=== PATIENT | female | born 1985 | race Caucasian/White ===

== ENCOUNTER → 2019-05-02 17:43 | Outpatient (CLI) | payer OTHER, SELFPAY ==
--- NOTE | ~2019-05-02 | US_ITS ---
EXAMINATION: US OB transvaginal DATE: 05/02/2019 18:12 INDICATION: Establish dating of during first trimester TECHNIQUE: Real-time pelvic ultrasound utilizing both a transvaginal and transabdominal probe was pe rformed. The interpreting radiologist was not present for the study. COMPARISON: None. FINDINGS: The uterus measures 8.8 x 5.2 x 5.5 cm. There is an intrauterine gestational sac. A yolk sac and fet al pole are identified. The crown rump length measures 4 mm, which correlates with an estimated gesta tional age of 6 weeks and 1 days. heart motion is identified measuring 111 beats per minute (bp m) by M-mode Doppler. The right ovary is not visualized. The left ovary measures 2.6 x 2.7 x 2.7 cm and contains a 10 mm an echoic likely corpus luteum cyst. Vascular flow is seen in the left ovary on color Doppler. There is no free fluid in the pelvis. IMPRESSION: 1. Single living fetus with heart rate of 111 bpm. 2. Gestational age by ultrasound of 6 weeks 1 day(s) +/- 4 day(s) with ultrasound estimated date of delivery (JOÃO) of 12/25/2019. Reviewed, dictated and finalized at location A. T PACKER IMPRESSION: 1. Single living fetus with heart rate of 111 bpm. 2. Gestational age by ultrasound of 6 weeks 1 day(s) +/- 4 day(s) with ultraso und estimated date of delivery (JOÃO) of 12/25/2019.
== END ==
PROVIDERS: Visit Provider Obstetrics & Gynecology
DX: O26.21 Pregnancy care for patient with recurrent pregnancy loss, first trimester (principal); Z3A.01 Less than 8 weeks gestation of pregnancy
CPT/HCPCS: 76817

== ENCOUNTER 2019-07-25 07:56 | Outpatient (CLI) | payer OTHER, SELFPAY ==
--- NOTE | ~2019-07-25 | US_ITS ---
EXAMINATION: US OB /maternal detail DATE: 07/25/2019 09:05 INDICATION: survey TECHNIQUE: Multiple obstetric sonographic images performed. FINDINGS: No prior studies for comparison. There is a single living fetus in vertex presentation. The placenta is fundal without placenta previ a. Amniotic fluid volume is subjectively normal. cardiac activity and movement is noted with a heart rate of 157 beats per minute. The following anatomy was identified as normal: 4 chamber heart 3 vessel cord cord insertion kidneys urinary bladder stomach spine diaphragm ventricles cisterna magna cerebellum The following biometric data were obtained: BPD: 40mm corresponds to gestational age 18 weeks 1 days. Head circumference: 154 mm corresponds to gestational age 18 weeks 2 days. Abdominal circumference: 132 mm corresponds to gestational age 18 weeks 5 days. Femur length: 26 mm corresponds to gestational age 18 weeks 0 days. Head circumference to abdominal circumference ratio: 1.16 (normal range for expected gestational age is 1.08-1.27). Estimated weight: 235 grams +/- 35 grams using Hadlock method. IMPRESSION: 1: Single living intrauterine with an estimated gestational age of 18weeks 2days by current ultrasound measurements, with an EDC of 12/24/2019 in breech presentation. 2. Normal survey. Reviewed, dictated and finalized at location A. IMPRESSION: 1: Single living intrauterine with an estimated gestational age of 18 weeks 2days by current ultrasound measurements, with an EDC of 12/24/2019 in [place] ech presentation. 2. Normal survey.
== END 2019-07-25 07:57 | disposition home or self-care (01) ==
LOC: ANHIMG 07:59
PROVIDERS: PCP Family Medicine; Visit Provider Obstetrics & Gynecology
DX: Z34.92 Encounter for supervision of normal pregnancy, unspecified, second trimester (principal); Z3A.18 18 weeks gestation of pregnancy
CPT/HCPCS: 76805

== ENCOUNTER → 2019-10-16 11:32 | Outpatient (CLI) | payer OTHER, SELFPAY ==
--- NOTE | ~2019-10-16 | US_ITS ---
EXAMINATION: US OB follow up DATE: 10/16/2019 11:52 INDICATION: Size greater than dates during third trimester TECHNIQUE: Real-time ultrasound of the pelvis was performed. The interpreting radiologist was not pre sent for the study. COMPARISON: 07/25/2019 FINDINGS: There is a single living fetus in breech presentation. The placenta is anterior. card iac activity and movement are noted. heart rate is 150 beats per minute (bpm). The amniot ic fluid index is 20.2 cm which is normal. The following biometric data were obtained: Biparietal diameter (BPD): 7.9 cm; head circumference (HC): 29.7 cm; abdominal circumference (AC): 28 .9 cm; femur length (FL): 6.0 cm. These measurements are concordant. Estimated weight is 1982 g +/- 297 g, which correlates with the >97th percentile when 12/25/2019 is used as estimated date of delivery. As single measurements, these parameters are each equal to the following estimated gestational ages w ith ranges of +/- 2 standard deviations: BPD: 32 weeks 0 days ( 29 weeks 0 days - 35 weeks 1 days). HC: 32 weeks 6 days ( 29 weeks 6 days - 35 weeks 6 days). AC: 33 weeks 0 days ( 30 weeks 0 days - 35 weeks 6 days). FL: 31 weeks 4 days ( 28 weeks 4 days - 34 weeks 4 days). estimated gestational age based solely on measurements from this exam is 32 weeks 3 days +/- 2 weeks 2 days. IMPRESSION: 1. Single living fetus in breech presentation. 2. Estimated weight is 1982 g +/- 297 g, which correlates with the >97th percentile when 020 is used as estimated date of delivery. 3. Normal amniotic fluid index. Reviewed, dictated and finalized at location A. IMPRESSION: 1. Single living fetus in breech presentation. 2. Estimated weight is 1982 g +/- 297 g, which correlates with the >97th percentile when 12/25/2019 is used as estimated date of delivery. 3. Normal amniotic fluid index.
== END ==
PROVIDERS: Visit Provider Obstetrics & Gynecology Gynecology
DX: O36.63X0 Maternal care for excessive fetal growth, third trimester, not applicable or unspecified (principal); Z3A.32 32 weeks gestation of pregnancy
CPT/HCPCS: 76816

== ENCOUNTER 2019-11-17 12:34 | Outpatient (RCR) | payer OTHER, SELFPAY ==
[2019-11-17 13:45] VITALS: BP 136/76; PULSE 84
== END 2019-12-13 08:07 | disposition home or self-care (01) ==
LOC: ANHOBOP 12:34
PROVIDERS: PCP Family Medicine; Visit Provider Obstetrics & Gynecology
DX: P59.9 Neonatal jaundice, unspecified (principal)
CPT/HCPCS: 59025

== ENCOUNTER → 2019-11-27 12:07 | Outpatient (CLI) | payer OTHER, SELFPAY ==
--- NOTE | ~2019-11-27 | US_ITS ---
EXAMINATION: US OB follow up DATE: 11/27/2019 12:31 INDICATION: Size greater than dates during third trimester TECHNIQUE: Real-time ultrasound of the pelvis was performed. The interpreting radiologist was not pre sent for the study. COMPARISON: 10/03/2019 FINDINGS: There is a single living fetus in vertex presentation. The placenta is anterior. card iac activity and movement are noted. heart rate is 134 beats per minute (bpm). The amniot ic fluid index is 22.3 cm which is normal. The following biometric data were obtained: Biparietal diameter (BPD): 8.9 cm; head circumference (HC): 32.1 cm; abdominal circumference (AC): 33 .9 cm; femur length (FL): 6.9 cm. These measurements are concordant. Estimated weight is 3060 g +/- 459 g, which correlates with the 76th percentile when 12/25/2019 is used as estimated date of delivery. As single measurements, these parameters are each equal to the following estimated gestational ages w ith ranges of +/- 2 standard deviations: BPD: 36 weeks 1 days ( 33 weeks 0 days - 39 weeks 3 days). HC: 36 weeks 2 days ( 33 weeks 4 days - 38 weeks 6 days). AC: 37 weeks 6 days ( 34 weeks 6 days - 40 weeks 6 days). FL: 35 weeks 3 days ( 32 weeks 3 days - 38 weeks 3 days). estimated gestational age based solely on measurements from this exam is 36 weeks 3 days +/- 2 weeks 4 days. IMPRESSION: 1. Single living fetus in vertex presentation. 2. Normal amniotic fluid index. 3. Estimated weight is 3060 g +/- 459 g, which correlates with the 76th percentile when 12/25/19 20 is used as estimated date of delivery. Reviewed, dictated and finalized at location A. IMPRESSION: 1. Single living fetus in vertex presentation. 2. Normal amniotic fluid index. 3. Estimated weight is 3060 g +/- 459 g, which correlates with the 76th p ercentile when 12/25/2019 is used as estimated date of delivery.
== END ==
PROVIDERS: Visit Provider Obstetrics & Gynecology
DX: O36.63X0 Maternal care for excessive fetal growth, third trimester, not applicable or unspecified (principal); Z3A.36 36 weeks gestation of pregnancy
CPT/HCPCS: 76816

== ENCOUNTER 2019-11-29 16:28 | Outpatient (CLI) | payer OTHER, SELFPAY ==
[2019-11-29 17:34] LABS: Alanine Aminotransferase 12 U/L (4-35); Albumin Level 3.1 g/dL (3.5-5.1); Alkaline Phosphatase 94 U/L (38-126); Anion Gap 6 mmol/L (8-16); Aspartate Amino Transferase 18 U/L (14-36); Bilirubin,Total < 0.1 mg/dL (0.2-1.3); Blood Urea Nitrogen 9 mg/dL (7-17); Calcium 8.4 mg/dL (8.4-10.2); Carbon Dioxide 21 mmol/L (22-30); Chloride 106 mmol/L (98-107); Estimated Glomerular Filt Rate > 60; Glucose 127 mg/dL (65-105); Potassium 3.5 mmol/L (3.4-5.0); Sodium 133 mmol/L (137-145); Uric Acid 4.7 mg/dL (2.5-7.5)
== END 2019-11-29 16:29 | disposition home or self-care (01) ==
PROVIDERS: PCP Family Medicine; Visit Provider Obstetrics & Gynecology
DX: O13.9 Gestational [pregnancy-induced] hypertension without significant proteinuria, unspecified trimester (principal); Z3A.00 Weeks of gestation of pregnancy not specified
CPT/HCPCS: 36415; 80053; 84550

== ENCOUNTER 2019-12-01 08:41 | Outpatient (CLI) | payer OTHER, SELFPAY ==
[2019-12-01 09:07] LABS: Collection Time Urine 24 HOURS
[2019-12-01 09:15] LABS: Patient Weight 200 Lbs; Total Volume 24 Hour Urine 2500 ml
[2019-12-01 10:23] LABS: Creatinine Clearance Urine 186.3 ml/min (75-125)
== END 2019-12-01 08:42 | disposition home or self-care (01) ==
PROVIDERS: PCP Family Medicine; Visit Provider Obstetrics & Gynecology
DX: O24.419 Gestational diabetes mellitus in pregnancy, unspecified control (principal); Z3A.00 Weeks of gestation of pregnancy not specified
CPT/HCPCS: 82575

== ENCOUNTER 2019-12-08 09:18 | Outpatient (CLI) | payer OTHER, SELFPAY ==
[2019-12-08 10:03] LABS: Estimated Glomerular Filt Rate > 60
[2019-12-08 12:30] LABS: Collection Time Urine 24 HOURS
[2019-12-08 12:38] LABS: Creatinine Urine 65.8 mg/dL; Patient Weight 275 Lbs; Total Protein Urine Random 14 mg/dL
[2019-12-08 12:42] LABS: Creatinine Clearance Urine 157.6 ml/min (75-125); Total Protein Urine 24 Hr 322 MG/DAY (28-141); Total Volume 24 Hour Urine 2300 ml
== END 2019-12-08 09:19 | disposition home or self-care (01) ==
LOC: ANHLAB 09:20
PROVIDERS: Visit Provider Obstetrics & Gynecology
DX: O13.9 Gestational [pregnancy-induced] hypertension without significant proteinuria, unspecified trimester (principal); O12.00 Gestational edema, unspecified trimester
CPT/HCPCS: 36415; 81050; 82565; 82575; 84156

== ENCOUNTER 2019-12-11 06:48 | Inpatient (IN) | payer OTHER, SELFPAY ==
[2019-12-11] VITALS (103 sets, daily range): BP systolic 105–168; BP diastolic 58–106; PULSE 63–143; RESP 15–16; TEMP 36.8–37.5; O2SAT 96–100; BMI 43.1
[2019-12-11] MEDS: LACTATED RINGERS 1,000 ML 125 ML IV CONT ×2 (07:55→09:04)
[2019-12-11 07:56] LABS: Basophils Percent Auto 0.3 % (0.2-1.2); Eosinophils Absolute Auto 0.1 K/mm3 (0-0.3); Eosinophils Percent Auto 0.5 % (0-4.4); Hematocrit 30.8 % (37.0-47.0); Hemoglobin 10.4 g/dL (12.0-15.0); Immature Granulocyte Absolute 0.07 K/mm3 (0.00-0.031); Immature Granulocyte Percent A 0.6 % (0-0.5); Lymphocytes Absolute Auto 1.82 K/mm3 (0.9-3.2); Lymphocytes Percent Auto 15.6 % (18.3-44.2); Mean Corpuscular HGB Conc 33.8 g/dl (32-36); Mean Corpuscular Hemoglobin 30.1 pg (26-34); Mean Corpuscular Volume 89.3 fl (80-100); Mean Platelet Volume 10.4 fl (7.4-10.4); Monocytes Absolute Auto 0.5 K/mm3 (0.1-0.6); Monocytes Percent Auto 3.9 % (2.6-8.5); Neutrophils Absolute Auto 9.2 K/mm3 (1.3-6.7); Neutrophils Percent Auto 79.1 % (45.5-73.1); Platelet Count Result 264 k/mm3 (150-375); Red Blood Count 3.45 M/mm3 (4.2-5.4); Red Cell Distribution Width 14.1 % (11.5-14.5); White Blood Count 11.7 K/mm3 (4.5-10.0)
[2019-12-11] MEDS: OXYTOCIN 30 UNITS/NS 500 ML 30 UNITS/500 ML BAG IV CONT (07:56)
[2019-12-11] MEDS: CALCIUM CARBONATE (TUMS) 500 MG (200 MG ELEMENTAL) PO (08:02)
[2019-12-11 08:07] LABS: Alanine Aminotransferase 14 U/L (4-35); Albumin Level 3.3 g/dL (3.5-5.1); Alkaline Phosphatase 111 U/L (38-126); Anion Gap 9 mmol/L (8-16); Aspartate Amino Transferase 22 U/L (14-36); Bilirubin,Total 0.2 mg/dL (0.2-1.3); Blood Urea Nitrogen 11 mg/dL (7-17); Calcium 9.1 mg/dL (8.4-10.2); Carbon Dioxide 21 mmol/L (22-30); Chloride 103 mmol/L (98-107); Estimated Glomerular Filt Rate > 60; Glucose 134 mg/dL (65-105); Potassium 3.7 mmol/L (3.4-5.0); Sodium 133 mmol/L (137-145); Uric Acid 5.1 mg/dL (2.5-7.5)
--- NOTE | 2019-12-11 08:13 | WPDOBADMIT ---
Obstetrics - Admit Note Admission Note: record reviewed. No pertinent additions to the history and/or any subsequent changes in the physical findings that are not consistent with the expected course of the were found. Additions to the history and/or subsequent changes in the physical findings follow. None.Here per Dr. Hartmann for MIL for preeclampsia. Asked to AROM. Cervix 3-4/50/-2 AROM with clear fluid. BP elevated x 2 when getting IV. ok now
--- NOTE | 2019-12-11 09:01 | WPDANESEPPF ---
Anes - Initial Pre Proc Eval Procedure: labor epidural Date/Time: 12/11/19 09:01 Surgeon: Leobardo Hartmann MD Pre Op Diagnosis: labor pain Pre Op Diagnosis: IOL Patient Data Age: 34 Gender: F Height: 1.7 m Weight: 125 kg Last Vital Signs Temp 37.0 C 12/11/19 08:05 Pulse 100 12/11/19 08:59 BP 136/86 12/11/19 08:59 Pulse Ox 100 12/11/19 09:00 Allergies Allergy/AdvReac Type Severity Reaction Status Date / Time doxycycline Allergy Unknown rash, Verified 04/02/17 21:20 pruritis Home Medications Medication Instructions Recorded Confirmed Type fluoxetine 10 mg tablet 10 mg PO DAILY 02/09/19 12/02/19 History cholecalciferol (vitamin D3) 1,250 1,250 mcg PO WEEKLY 08/01/19 12/02/19 History mcg (50,000 unit) capsule vit 123-iron 28 mg-folic 1 cap PO DAILY 08/01/19 12/02/19 History acid 800 [id number] 235 mg capsule ferrous sulfate [Iron (ferrous 325 mg PO DAILY 12/02/19 12/02/19 History sulfate)] insulin NPH isoph U-100 human 10 unit SUBCUT HS 12/02/19 12/02/19 History [Humulin N NPH U-100 Insulin] Laboratory Tests 12/11/19 12/11/19 12/11/19 07:37 07:37 07:37 WBC 11.7 K/mm3 H K/mm3 (4.5-10.0) RBC 3.45 M/mm3 L M/mm3 (4.2-5.4) Hgb 10.4 g/dL L g/dL (12.0-15.0) Hct 30.8 % L % (37.0-47.0) MCV 89.3 fl fl (80-100) MCH 30.1 pg pg (26-34) MCHC 33.8 g/dl g/dl (32-36) RDW 14.1 % % (11.5-14.5) Plt Count 264 k/mm3 k/mm3 (150-375) MPV 10.4 fl fl (7.4-10.4) Immature Gran % (Auto) 0.6 % H % (0-0.5) Neut % (Auto) 79.1 % H % (45.5-73.1) Lymph % (Auto) 15.6 % L % (18.3-44.2) [place] % (Auto) 3.9 % % (2.6-8.5) Eos % (Auto) 0.5 % % (0-4.4) Baso % (Auto) 0.3 % % (0.2-1.2) Lymph # (Auto) 1.82 K/mm3 K/mm3 (0.9-3.2) [place] # (Auto) 0.5 K/mm3 K/mm3 (0.1-0.6) Eos # (Auto) 0.1 K/mm3 K/mm3 (0-0.3) Baso # (Auto) 0.0 K/mm3 K/mm3 (0.0-0.1) Abs Immat Gran (auto) 0.07 K/mm3 H K/mm3 (0.00-0.031) Absolute Neuts (auto) 9.2 K/mm3 H K/mm3 (1.3-6.7) Absolute Nucleated RBC 0.0 K/mm3 K/mm3 (0.0-0.012) Nucleated RBC % 0.0 % % (0.0-0.2) Sodium 133 mmol/L L mmol/L (137-145) Potassium 3.7 mmol/L mmol/L (3.4-5.0) Chloride 103 mmol/L mmol/L (98-107) Carbon Dioxide 21 mmol/L L mmol/L (22-30) Anion Gap 9 mmol/L mmol/L (8-16) BUN 11 mg/dL mg/dL (7-17) Creatinine 0.50 mg/dL L mg/dL (0.7-1.0) Estim Creat Clear Calc Not Reportable Estimated GFR > 60 (59 - ) Glucose 134 mg/dL H mg/dL (65-105) Uric Acid 5.1 mg/dL mg/dL (2.5-7.5) Calcium 9.1 mg/dL mg/dL (8.4-10.2) Total Bilirubin 0.2 mg/dL mg/dL (0.2-1.3) AST 22 U/L U/L (14-36) ALT 14 U/L U/L (4-35) Alkaline Phosphatase 111 U/L U/L (38-126) Total Protein 6.0 g/dL L g/dL (6.3-8.2) Albumin 3.3 g/dL L g/dL (3.5-5.1) RPR Pending Patient hx anesthesia problems: none Family hx anesthesia problems: none PMF Past Medical History Medical History (Updated 12/11/19 @ 09:04 by Cecil Teague, ) Anxiety with flying Gestational diabetes Missed 2018/ 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
[2019-12-11 10:39] LABS: Glucose Point of Care 74 (65-105)
--- NOTE | 2019-12-11 13:54 | P.PCNOB_ITS ---
OB - Delivery Note Procedure events: Gestational Diabetes and Pre-Eclampsia Intrapartal events: None Induction method: AROM and per pitocin protocol Delivery monitor: external FHT and external uterine Route of delivery: Laceration description: Perineal - 2nd Degree Delivery repair: vicryl Specimen: Yes Estimated blood loss (mL): 240 Anesthesia type: Epidural [place] Baby Date of : 12/11/19 Time of : 13:38 Weeks of gestation at delivery: 38 Weight (pounds): 8 Weight (ounces): 0 presentation: vertex position: Left Occiput Anterior Placenta delivery description: Spontaneous cord vessel description: 3 Vessels score one minute: 8 score five minutes: 9
[2019-12-11] MEDS: OXYTOCIN 30 UNITS/NS 500 ML 30 UNITS/500 ML BAG 125 UNITS IV CONT (14:18)
[2019-12-11] MEDS: WITCH HAZEL 40 PADS 1 PAD TOPICAL (16:12)
[2019-12-11] MEDS: IBUPROFEN 600 MG TABLET PO (16:12)
[2019-12-11] MEDS: BENZOCAINE 20% AER SPR (*SP) 56 GM CAN 1 SPRAY TOPICAL (16:12)
[2019-12-12] MEDS: IBUPROFEN 600 MG TABLET PO (04:00)
[2019-12-12 05:57] LABS: Hematocrit 25.3 % (37.0-47.0); Hemoglobin 8.3 g/dL (12.0-15.0)
[2019-12-12 07:40] VITALS: BP 134/84; PULSE 95; RESP 18; TEMP 36.6; O2SAT 97
[2019-12-12 07:45] LABS: Rapid Plasma Reagin Non-Reactive (NonReactive)
--- NOTE | 2019-12-12 08:23 | PM.OBPNVD ---
OB - PN: Subj Subjective Date/time seen: 12/12/19 08:23 Patient comments: other (complains of migraine and request excedrin) [place] baby status: doing well OB - PN: Obj Data Labs CBC & Chem 7: 12/12/19 04:06 12/11/19 07:37 Labs: Laboratory Results - last 24 hr 12/11/19 12/11/19 12/11/19 07:37 07:37 10:35 Hgb Hct POC Capillary Glucose 74 RPR Non-reactive Blood Type A Positive Antibody Screen Negative 12/12/19 04:06 Hgb 8.3 L Hct 25.3 L POC Capillary Glucose RPR Blood Type Antibody Screen OB - PN A/P Assessment and Plan (1) Pre-eclampsia affecting childbirth: Code(s): O14.94 - Unspecified pre-eclampsia, complicating childbirth Status: Acute Assessment and Plan: BP remain elevated but stable Plan day: 1 Time Spent With Patient Time: Total time spent is greater than 50% in coordination of care (as documented) at patient's floor/unit and/or counseling patient: Exam : Bimanual exam- vagina & uterus: other (Uterus firm, nt @U)
--- NOTE | 2019-12-12 09:00 | WPDANLDPN2 ---
Anes-Prog Note L&D Date/Time: 12/12/19 09:00 Comfortable throughout: labor and delivery Neuraxial method: epidural Epidural/Spinal procedure site: clean & non-tender Neuro status: Neuro function grossly intact. Cardiovascular status: normal Respiratory status: normal Airway patency: baseline Mental status: baseline Post-Op hydration status: normal Vital Signs: Last Vital Signs Temp 36.8 C 12/11/19 19:00 Pulse 75 12/11/19 19:00 Resp 15 12/11/19 19:00 BP 153/93 H 12/11/19 19:00 Pulse Ox 98 12/11/19 19:00 Post-procedural complaints: none Patient feedback: Patient satisfied with anesthetic care.
[2019-12-12] MEDS: MULTIVIT/MIN/PREN/FOL AC/IRON TABLET 1 TAB PO (09:11)
[2019-12-12] MEDS: FLUoxetine HCL 10 MG CAPSULE PO (09:11)
[2019-12-12] MEDS: POLYSACCHARIDE IRON COMPLEX 150 MG CAPSULE PO ×2 (09:12→15:54)
[2019-12-12] MEDS: DOCUSATE SODIUM 100 MG CAPSULE PO ×2 (09:12→15:53)
[2019-12-12] MEDS: ACETAMINOPHEN 325 MG TABLET 650 MG PO ×2 (09:22→15:54)
--- NOTE | 2019-12-12 12:00 | PC.NURSE ---
Consulted with patient, mother reports some tenderness and difficulties maintaining deep latch. Observed infant tongue appears to have a tight frenulum. Discussed how this may impact latch, ability to empty breast and maintain deep latch. Reviewed feeding cues, frequencies, duration of feedings, feeding elimination flow sheet, and signs of adequate intake. Demonstrated stimulation techniques to wake infant for feeding. Assisted with to breast. Reviewed positioning/alignment in cross cradle, holding breast in U hold and guided asymmetrical latch on. Discussed rational for each. Infant was able to latch correctly. nursed eagerly, with steady draws and frequent swallowing for bursts with intermittent short chewy suckling. This is when mother reports tenderness. Reviewed this is when may slip down to shallow latch. Demonstrated how to adjust latch more deeply while feeding. Reviewed signs of a correct latch, effective nursing and suck swallow ratio. Infant was able to maintain latch without discomfort to mother. Nipple care reviewed. Advised to stimulate while feeding to keep awake and nursing effectively for increased intake and to assist with maintaining deep latch. Instructed mother to call out for RN assistance if she is unable to latch infant for feeding or she has discomfort with nursing. Instructed feeding should be initiated three hours from start of last feeding or if feeding cues are noted before. Mother voiced understanding of information shared. Discussed tongue with primary RN and ICP.
[2019-12-12 20:00] VITALS: BP 130/88; PULSE 83; RESP 18; TEMP 36.8; O2SAT 99
[2019-12-13 07:25] VITALS: BP 139/73; PULSE 86; RESP 16; TEMP 37; O2SAT 100
[2019-12-13] MEDS: MULTIVIT/MIN/PREN/FOL AC/IRON TABLET 1 TAB PO (09:14)
[2019-12-13] MEDS: DOCUSATE SODIUM 100 MG CAPSULE PO (09:14)
[2019-12-13] MEDS: FLUoxetine HCL 10 MG CAPSULE PO (09:15)
[2019-12-13] MEDS: POLYSACCHARIDE IRON COMPLEX 150 MG CAPSULE PO (09:15)
[2019-12-13] MEDS: MEASLES,MUMPS,RUBELLA VACCINE 0.5 ML VIAL SUB-Q (09:15)
--- NOTE | 2019-12-13 10:04 | P.PNOB_ITS ---
OB - PN: Subj Subjective Date/time seen: 12/13/19 10:04 DOing well no complaints denies headache feels swelling is improving having some trouble with OB - PN: Obj Data Labs CBC & Chem 7: 12/12/19 04:06 12/11/19 07:37 OB - PN A/P Assessment and Plan (1) Pre-eclampsia affecting childbirth: Code(s): O14.94 - Unspecified pre-eclampsia, complicating childbirth Status: Acute Assessment and Plan: s/p continue to monitor bps at home twice a day and f/u bp check in one wee k. continue feso4 supplements. Time Spent With Patient Time: Total time spent is greater than 50% in coordination of care (as documented) at patient's floor/unit and/or counseling patient: Exam GI: GI Palp: Yes Firmness to palpation present (GI) Other: fundus below umbilicus
--- NOTE | 2019-12-13 10:06 | PM.DS ---
DS: Admitting Diagnosis Admitting Diagnosis Admitting Diagnosis: IOL DS: Discharge Diagnosis Discharge Diagnosis (1) Pre-eclampsia affecting childbirth: Onset Date: ~11/2019 Code(s): O14.94 - Unspecified pre-eclampsia, complicating childbirth Status: Acute Assessment and Plan: delivered. DS: Summary Time Spent with Patient Time attestation: Total time spent providing and/or coordinating discharge services: DS: Data Data Completed and Pending Pending studies at discharge: Pending at discharge 12/11/19 14:04 Surgical [PTH] Routine Discharge Plan Discharge Attending physician on discharge: Leobardo Hartmann Discharging Clinician: Leobardo Hartmann Patient Disposition: Home, Self-Care Activity: may shower and pelvic rest Diet: regular Patient Instructions: Antibiotic Form Stand Alone Forms: General Discharge Information Follow-up/Referrals: Leobardo Hartmann MD [Physician] - Discharge Medications: Continued fluoxetine 10 mg tablet 10 mg PO DAILY RF: 0 One-A-Day Women's 1 28 mg iron- 800 mcg-235 mg capsule 1 cap PO DAILY RF: 0 cholecalciferol (vitamin D3) 1,250 mcg (50,000 unit) capsule 1,250 mcg PO WEEKLY RF: 0 ferrous sulfate [Iron (ferrous sulfate)] 325 mg (65 mg iron) Tablet 325 mg PO DAILY RF: 0 Discontinued Humulin N NPH U-100 Insulin 100 unit/mL Suspension 10 unit SUBCUT HS RF: 0 Date of admission: 12/11/19 06:48 Primary Care Provider: Marylu Nichols Admitting Provider: Leobardo Hartmann Attending physician on admission: Leobardo Hartmann
--- NOTE | 2019-12-13 12:20 | PC.NURSE ---
Mother is able to independently latch infant with appropriate positioning/alignment. She denies any nipple discomfort, is feeding as required and waking to feed if needed. has had at least 8 effective feedings in the past 24 hours, and is currently meeting outcomes for weight, output, jaundice and feeding frequencies. Mother states she feels confident to continue effective at home. Mother reports she feels is able to better maintain deep latch after frenulectomy. Reviewed transition to breast milk, signs of adequate intake, and engorgement/relief. Instructed to call ICP if intake/output less than required. Reviewed regular medications mother is taking. Information provided per [place]. Reviewed community resources on the [facility] website and in the Mom/Baby guide. Information on outpatient services provided. Mother has no further questions at this time.
[2019-12-15 10:57] VITALS: BP 145/83; PULSE 100; RESP 20; TEMP 36.9; O2SAT 99
--- NOTE | 2019-12-18 11:10 | PM.OBDSVD ---
DS: Admitting Diagnosis Admitting Diagnosis Admitting Diagnosis: IOL OB - DS: Summary OB Procedures : [facility] Mgmt OB Procedures Intrapartum: Spontaneous Vag Delivery OB Procedures: : None Time Spent with Patient Time attestation: Total time spent providing and/or coordinating discharge services: DS: Data Data Completed and Pending Completed studies during hospitalization: Pending at discharge 12/11/19 14:04 Surgical [PTH] Routine Discharge Plan Discharge Attending physician on discharge: Leobardo Hartmann Consulting providers: Cecil Teague Discharging Clinician: Leobardo Hartmann Patient Disposition: Home, Self-Care Activity: may shower and pelvic rest Diet: regular Discharge Instructions: Education: Mom and Baby Guide Given to: Mother Follow-Up: Call your delivering provider's office for an appointment to be seen. Mom and baby should come to the [facility] for the follow-up appointment. Appointment Date/Time: December 15, 2019 at 10:00 am What to expect at your follow-up visit: Physical Assessment Call [phone] if you are unable to keep your appointment time. BREAST CARE: * Wear a snug supportive bra. * For engorgement discomfort: Breast Feeding: * Apply warm moist washcloths * Express milk as needed to relieve engorgement * Wear loose clothing * For sore nipples: * Identify correct latch-on * Apply warm moist washcloths before and after nursing * Air dry nipples after nursing * May apply Lansinoh cream to nipples EPISIOTOMY/PERINEAL CARE: * Until bleeding stops, use your avani bottle after urinating * Change your pad frequently throughout the day * You may take sitz baths several times a day (fill your bathtub with warm water and soak for 20 minutes.) Do NOT bathe in the water * No tub baths until seen by your physician - You may shower ACTIVITY: * Rest as much as possible. * Do not exercise or lift anything heavier than your baby (such as laundry or other children.) * Avoid stairs or driving as much as possible. * Do not put anything into the vagina. No douching, tampons, or sexual activity until seen by physician. NOTIFY PHYSICIAN IF YOU HAVE ANY QUESTIONS OR IF ANY OF THE FOLLOWING SYMPTOMS OCCUR: * If your stitches become red, swollen, or more painful than what you have experienced in the hospital. * If your vaginal bleeding becomes foul smelling. * If your vaginal bleeding becomes more heavy than a period or if your bleeding changes from pink to bright red. However, you may pass an occasional walnut-sized clot once or twice for the first week . * If you experience a sharp, shooting pain in you calves. * If you discover a hard, reddened area on your breast or if you experience flu-like symptoms. DIET: * Eat regular, well-balanced meals. * Drink plenty of fluids daily. If , drink to thirst. Stand Alone Forms: General Discharge Information Follow-up/Referrals: Leobardo Hartmann MD [Physician] - Call for Appointment Discharge Medications: Continued fluoxetine 10 mg tablet 10 mg PO DAILY RF: 0 One-A-Day Women's 1 28 mg iron- 800 mcg-235 mg capsule 1 cap PO DAILY RF: 0 cholecalciferol (vitamin D3) 1,250 mcg (50,000 unit) capsule 1,250 mcg PO WEEKLY RF: 0 ferrous sulfate [Iron (ferrous sulfate)] 325 mg (65 mg iron) Tablet 325 mg PO DAILY RF: 0 Discontinued Humulin N NPH U-100 Insulin 100 unit/mL Suspension 10 unit SUBCUT HS RF: 0 Date of admission: 12/11/19 06:48 Primary Care Provider: Marylu Nichols Admitting Provider: Leobardo Hartmann Interventions: Discharge Disposition Last Done: 12/13/19 13:33 Discharge Date/Time: 12/13/19 13:33 Attending physician on admission: Leobardo Hartmann Condition: Stable
== END 2019-12-13 13:33 | disposition home or self-care (01) | DRG 807 ==
LOC: ANHLDR 06:51 → ANHOB2 16:55
PROVIDERS: Admitting Provider Obstetrics & Gynecology; PCP Family Medicine; Visit Provider Obstetrics & Gynecology
DX: O14.94 Unspecified pre-eclampsia, complicating childbirth (principal); Z37.0 Single live birth; Z3A.38 38 weeks gestation of pregnancy; O24.429 Gestational diabetes mellitus in childbirth, unspecified control; O99.214 Obesity complicating childbirth; E66.01 Morbid (severe) obesity due to excess calories; O70.1 Second degree perineal laceration during delivery; O99.344 Other mental disorders complicating childbirth; F41.9 Anxiety disorder, unspecified
CPT/HCPCS: 36415; 80053; 84550; 85014; 85018; 85025; 86592; 86850; 86900; 86901; 88307; 90710; A9270; J2590; J2795; J7120

== ENCOUNTER 2020-07-09 11:30 | Outpatient (CLI) | payer OTHER, SELFPAY | END 2020-07-09 11:31 | disposition home or self-care (01) | LOC: ANHCOVIDVC 11:30 | PROVIDERS: PCP Family Medicine | DX: Z23 Encounter for immunization (principal) | CPT/HCPCS: 0001A; 91300 ==

== ENCOUNTER 2020-07-30 11:27 | Outpatient (CLI) | payer OTHER, SELFPAY | END 2020-07-30 11:28 | disposition home or self-care (01) | LOC: ANHCOVIDVC 11:27 | PROVIDERS: PCP Family Medicine | DX: Z23 Encounter for immunization (principal) | CPT/HCPCS: 0002A; 91300 ==

== ENCOUNTER 2022-05-22 08:36 | Emergency (ER) | payer OTHER, SELFPAY ==
--- NOTE | 2022-05-22 08:48 | ED.URI ---
HPI - URI/Sore Throat General Chief Complaint: Upper Respiratory Infection Stated Complaint: sore throat Time Seen by Provider: 05/22/22 08:48 Source: patient Mode of arrival: ambulatory Limitations: no limitations History of Present Illness HPI Narrative: 37-year-old female presents with complaint of sore throat, fatigue, headache starting yesterday. Afebrile. Denies nausea vomiting diarrhea. All systems reviewed and negative except as noted above. Related Data Home Medications Medication Instructions Recorded Confirmed fluoxetine 20 mg capsule 20 mg PO DAILY 05/22/22 05/22/22 Allergies Allergy/AdvReac Type Severity Reaction Status Date / Time doxycycline Allergy Unknown rash, Verified 05/22/22 09:00 pruritis Review of Systems Review of Systems: CONSTITUTIONAL: Denies fever, chills, or sweats. Reports fatigue. EYES: Denies visual changes, redness, or discharge. ENT: Denies rhinorrhea, congestion. Reports sore throat. Denies otalgia. CARDIOVASCULAR: Denies chest pain, palpitations, or edema. RESPIRATORY: Denies cough or dyspnea. GASTROINTESTINAL: Denies abdominal pain, nausea, vomiting, or diarrhea. GENITOURINARY: Denies dysuria or hematuria. SKIN: Denies rash or itching. MUSCULOSKELETAL: Denies back pain, joint pain, or myalgia. NEUROLOGIC: Denies headache, numbness, or weakness. PSYCHIATRIC: Denies anxiety or depression. All other systems reviewed are negative, except as documented in HPI. 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 Family History Family History Grandparent Family history of migraine headaches Family history of Alzheimer's disease Malignant neoplasm of prostate Family history of primary malignant neoplasm of liver Mother Hypertension Family history of elevated blood lipids Social History Social History Smoking status: Never smoker Second hand tobacco smoke exposure: No Smoking end date: 07/31/16 Alcohol intake: current Substance use: never Gender identity (if verbalized by the patient): Female Spiritual care concerns: No Comments At time of signature, agree with nursing past medical, surgical, social and family history. There is no relevant family history pertinent to the presenting complaint. Exam Narrative: GENERAL: This is a well-nourished, well-developed patient, in no apparent distress. HEAD: normocephalic, atraumatic. EYES: PERRL. Sclera clear/white. Vision is grossly intact. EARS: External ears normal, auditory canals clear and without drainage, TMs normal without perforation. Hearing grossly intact. NOSE: External nose normal with no obvious nasal discharge, nares without redness, no rhinorrhea. THROAT: Mucous membranes moist, erythema and swelling. NECK: Neck supple, non-tender without lymphadenopathy, masses or thyromegaly. CARDIOVASCULAR: Regular rate and rhythm without murmurs, gallops, or rubs. RESPIRATORY: Clear to auscultation. Breath sounds equal bilaterally. No wheezes, rales, or rhonchi. SKIN: warm, Dry, intact with no suspicious lesions or rash, good texture and turgor. NEURO: awake, alert, and oriented to person, place and time. There were no obvious focal neurologic abnormalities. EXTREMITIES: No joint tenderness, effusion, or edema noted. Course Course Level of Care: Express Care Visit Vital Signs Vital signs: Vital Signs Temperature 36.6 C 05/22/22 08:49 Pulse Rate 80 05/22/22 08:49 Respiratory Rate 16 05/22/22 08:49 Blood Pressure 143/93 H 05/22/22 08:49 Pulse Oximetry 98 05/22/22 08:49 Temperature 36.6 C 05/22/22 08:49 Pulse Rate 80 05/22/22 08:49 Respiratory Rate 16 05/22/22 08:49 Blood Pressure 143/93 H 05/22/22 08:49 Pulse Oximetry
[2022-05-22 08:49] VITALS: BP 143/93; PULSE 80; RESP 16; TEMP 36.6; O2SAT 98
== END 2022-05-22 09:09 | disposition home or self-care (01) ==
PROVIDERS: Emergency Provider Nurse Practitioner Family; PCP Family Medicine
DX: J02.0 Streptococcal pharyngitis (principal)
CPT/HCPCS: 87880; 99213; G0463